=== PATIENT | female | born 1990 | race Caucasian/White ===

== ENCOUNTER 2018-12-29 22:50 | Emergency (ER) | payer BC ==
[~2018-12-29] VITALS: Ht 170.2 cm; Wt 108.9 kg
[2018-12-29] MEDS ORDERED: CLONIDINE0.1 PO (23:00)
[2018-12-29] MEDS ORDERED: REMERON15 MG PO (23:00)
[2018-12-29] MEDS ORDERED: ABILIFY 5 MG TAB5 M1 PO (23:01)
[2018-12-29] MEDS ORDERED: SERTRALINE HCL50 MG PO (23:02)
[2018-12-29 23:17] LABS: ABSOLUTE BASOPHILS 0.1 thou/uL (0.0-0.2); ABSOLUTE EOSINOPHILS 0.1 thou/uL (0.0-0.7); ABSOLUTE LYMPHOCYTES 1.9 thou/uL (0.8-5.3); ABSOLUTE MONOCYTES 0.9 thou/uL (0.0-1.2); ABSOLUTE NEUTROPHILS 8.7 thou/uL (1.6-8.1); BASOPHILS 0.5 %; EOSINOPHILS 0.8 %; HEMATOCRIT 41.2 % (37.0-47.0); HEMOGLOBIN 13.9 gm/dL (12.0-15.0); LYMPHOCYTES 16.1 %; MCH 30.3 pg (26.0-34.0); MCHC 33.9 g/dL (28.0-37.0); MCV 89.5 fL (80.0-100.0); MONOCYTES 7.6 %; MPV 8.5 fl. (7.2-11.1); NUCLEATED RBCS 0 /100WBC; PLATELET COUNT* 292 thou/uL (150-400); RDW-CV 13.7 % (10.5-14.5); WBC 11.7 thou/uL (4.0-11.0)
[2018-12-29 23:18] LABS: URINE BILIRUBIN NEGATIVE (Negative); URINE BLOOD 3+ (Negative); URINE CLARITY CLEAR; URINE COLOR YELLOW; URINE GLUCOSE-RANDOM NEGATIVE (Negative); URINE KETONES NEGATIVE (Negative); URINE LEUKOCYTES-REFLEX NEGATIVE (Negative); URINE NITRITE-REFLEX NEGATIVE (Negative); URINE PROTEIN NEGATIVE (Negative); URINE SPECIFIC GRAVITY <= 1.005 (1.005-1.030); URINE UROBILINOGEN 0.2 E.U./dl (0.2-1.0)
[2018-12-29 23:35] LABS: AMP/METHAMP Negative (Negative); BARBITURATES Negative (Negative); BENZODIAZEPINES Negative (Negative); CASTS None Seen /LPF (None Seen); COCAINE Negative (Negative); CRYSTALS None Seen /LPF (None Seen); METHADONE Negative (Negative); MUCUS 0-3 Light strn/LPF (None Seen); OPIATES Negative (Negative); PCP Negative (Negative); SQUAMOUS 0-3 Few /LPF (0-3); THC Negative (Negative); URINE RBC 3-10 Few /HPF (0-2); URINE WBC-REFLEX 0-5 Rare /HPF (0-5)
[2018-12-29 23:46] LABS: ALBUMIN 3.6 g/dL (3.4-5.0); CALCIUM 8.9 mg/dL (8.5-10.1); CREATININE 0.9 mg/dL (0.6-1.3); POTASSIUM 3.3 mmol/L (3.5-5.1); TOTAL BILIRUBIN 0.6 mg/dL (<0.1-1.0); TOTAL PROTEIN 7.2 g/dL (6.4-8.2)
[2018-12-29 23:59] LABS: ACETAMINOPHEN < 2 ug/mL (10-30); ALCOHOL 144 mg/dL (<10); SALICYLATE < 2.8 mg/dL (2.8-20.0)
--- NOTE | 2018-12-30 10:39 | EKG ---
[place] [address] ELECTROCARDIOGRAM REPORT Name: DOTTIE MALDONADO [id number] Admission: 12/29/18 Attend Phys: Discharge: Date of : 89 Report #: [id number] THIS REPORT FOR: //name// [facility] ED Test Date: 2018-12-29 Test Time: 22:54:53 Pat Name: DOTTIE MALDONADO Department: Room: Gender: F [place] Inspector: AWA : 1990 Requested By: Ketan Joseph Order Number: [id number] MD: Robbie Delaney Measurements Intervals [place] Rate: 84 P: 25 [place]: 188 QRS: 8 QRSD: 100 T: 4 QT: 380 QTc: 450 Interpretive Statements Sinus rhythm wandering baseline No previous ECG available for comparison Electronically Signed On 12-30-2018 10:39:28 CDT by Robbie Delaney [email or web address] <ELECTRONICALLY SIGNED> By: Robbie Delaney MD, [facility] 12/30/18 1039 [id number] Robbie Delaney MD, FACC /EPI
[2018-12-30 18:45] VITALS: BP 115/71
== END 2018-12-30 18:53 ==
LOC: M.ERS 22:50
PROVIDERS: Family Medicine
DX: T43.022A Poisoning by tetracyclic antidepressants, intentional self-harm, initial encounter (principal); S40.812A Abrasion of left upper arm, initial encounter; R45.851 Suicidal ideations; F10.129 Alcohol abuse with intoxication, unspecified; Y90.0 Blood alcohol level of less than 20 mg/100 ml; X78.8XXA Intentional self-harm by other sharp object, initial encounter; Y92.89 Other specified places as the place of occurrence of the external cause; Y93.89 Activity, other specified; Y99.8 Other external cause status